=== PATIENT | female | born 1960 | race Hispanic/Latino ===

== ENCOUNTER 2018-08-03 09:52 | Outpatient (CLI) | payer BC | END 2018-08-03 09:53 | disposition home or self-care (01) | LOC: C.MAMMO 09:53 ==

== ENCOUNTER 2018-08-03 10:09 | Outpatient (CLI) | payer BC | END 2018-08-03 10:10 | disposition home or self-care (01) | LOC: C.DEXAIC 10:10 | DX: Z13.820 Encounter for screening for osteoporosis (principal) ==

== ENCOUNTER 2018-09-17 10:21 | Outpatient (CLI) | payer BC, MEDICAID | END 2018-09-17 10:22 | disposition home or self-care (01) | LOC: C.CTH 10:22 ==